=== PATIENT | male | born 1945 | race Caucasian/White ===

== ENCOUNTER 2018-11-23 07:41 | Day surgery (SDC) | payer OTHER ==
[2018-11-22 15:18] VITALS: BMI 28.5
[2018-11-23 09:56] VITALS: TEMP 97.2
[2018-11-23 12:26] VITALS: BP 177/73; PULSE 50
--- NOTE | 2018-11-24 12:09 | PATH ---
Surgical Pathology Report Patient Name: MENG CARTAGENA [facility]. Rec. #: [id number] /Age/Gender: 1945 (Age: 73) / M Account: [id number] Location: [facility]-ENDOSCOPY Taken: 11/23/2018 Received: 11/23/2018 Reported: 11/24/2018 Physicians: Kaylah Win M.D. Specimen(s) Received A: RECTUM B: PROXIMAL TRANSVERSE COLON POLYPS C: DISTAL TRANSVERSE COLON POLYPS Clinical History Adenoma surveillance Postoperative diagnosis: Colon polyps (rectum and proximal and distal transverse colon), diverticulosis Final Diagnosis A. RECTUM, BIOPSY: POLYPOID COLONIC MUCOSA WITH SUPERFICIAL HYPERPLASTIC FEATURES. B. PROXIMAL TRANSVERSE COLON, POLYPS, BIOPSY: TUBULAR ADENOMA(S). C. DISTAL TRANSVERSE COLON, POLYPS, POLYPECTOMY: TUBULAR ADENOMA(S). Electronically Signed Marivel Faulkner M.D. Gross Description A. Received in formalin, labeled "biopsy rectum" is a ness, irregular portion of soft tissue measuring 0.3 cm. in greatest dimension. The specimen is submitted in toto in one cassette. B. Received in formalin, labeled "biopsy proximal transverse colon" are 7 ness, irregular portions of soft tissue ranging from 0.2-0.5 cm. in greatest dimension. The specimens are submitted in toto in one cassette. C. Received in formalin, labeled "distal transverse colon polyps" are 2 ness, irregular portions of soft tissue measuring 0.3 and 1.2 cm. in greatest dimension. The specimens are submitted in toto in one cassette. DL/11/23/2018 saudi/11/23/2018
== END 2018-11-23 10:30 | disposition home or self-care (01) ==
LOC: JASU-ENDO 07:41
PROVIDERS: ATTEND Internal Medicine Gastroenterology
PROC: 0DBP8ZX Excision of Rectum, Via Natural or Artificial Opening Endoscopic, Diagnostic (ICD-10-PCS; 2018-11-23)
PROC: 0DBL8ZX Excision of Transverse Colon, Via Natural or Artificial Opening Endoscopic, Diagnostic (ICD-10-PCS; 2018-11-23)
PROC: 0DBL8ZX Excision of Transverse Colon, Via Natural or Artificial Opening Endoscopic, Diagnostic (ICD-10-PCS; principal; 2018-11-23 08:45)
DX: Z86.010 Personal history of colon polyps (principal); D12.3 Benign neoplasm of transverse colon; K62.89 Other specified diseases of anus and rectum; K57.30 Diverticulosis of large intestine without perforation or abscess without bleeding
CPT/HCPCS: 88305-TC